=== PATIENT | male | born 1985 | race Caucasian/White ===

== ENCOUNTER 2020-05-16 09:04 | Outpatient (CLI) | payer OTHER ==
[~2020-05-16] VITALS: Ht 180.3 cm; Wt 89.2 kg
[2020-05-16 10:00] VITALS: BP 133/87; PULSE 68; TEMP 98.3
[2020-05-16 10:13] LABS: CREATININE, serum 0.86 (0.66-1.25); POTASSIUM 4.1 mmol/L (3.4-5.0)
[2020-05-16 10:21] LABS: HEMATOCRIT 41.9 % (42.0-52.0); HEMOGLOBIN 14.6 g/dl (13.5-18.0); MEAN CELL VOLUME 91 fl (80.0-100.0); MEAN CORPUSCULAR HEMOGLOBIN 32 pg (27.0-31.0); MEAN CORPUSCULAR HGB CONC 35 g/dl (33.0-37.0); MEAN PLATELET VOLUME 9.8 fl (7.4-10.4); PLATELET COUNT 278 K/mm3 (130-400); RED BLOOD COUNT 4.59 M/mm3 (4.20-5.60); REDCELL DISTRIBUTION WIDTH-CV 12.1 % (11.5-14.5)
[2020-05-16 10:34] LABS: PROTHROMBIN TIME 11.5 SECONDS (9.7-12.8)
[2020-05-16 10:56] VITALS: BP 132/83; PULSE 64; TEMP 98.3
--- NOTE | 2020-05-16 10:56 | NUR ---
Report from Gardenia LOPEZ. Pt alert and oriented, denies pain and needs at this time. VSS.
[2020-05-16 11:11] VITALS: BP 110/71; PULSE 67; TEMP 98.3
[2020-05-16 11:26] VITALS: BP 125/75; PULSE 64; TEMP 98.3
[2020-05-16 11:41] VITALS: BP 123/70; PULSE 68; TEMP 98.3
--- NOTE | 2020-05-16 12:30 | NUR ---
INT discontinued intact. Dr. Torres in to see pt.
[2020-05-16] MEDS ORDERED: ASPIRIN E.C. 8181 MG PO (12:31)
--- NOTE | 2020-05-16 12:40 | NUR ---
Discharge instructions given by Jaron LOPEZ and pt ambulated to private car
== END 2020-05-16 12:45 | disposition home or self-care (01) ==
LOC: COL.RAD 09:04
PROVIDERS: Internal Medicine Cardiovascular Disease
DX: I44.0 Atrioventricular block, first degree (principal); I45.10 Unspecified right bundle-branch block
CPT/HCPCS: J2704